=== PATIENT | male | born 2005 | race Caucasian/White ===

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

== ENCOUNTER 2024-06-22 08:46 | Emergency (ER) | payer OTHER, SELFPAY ==
--- NOTE | ~2024-06-22 | US_ITS ---
US scrotum doppler INDICATION: Left testicular pain after trauma TECHNIQUE: Testicular sonogram utilizing grayscale and color Doppler FINDINGS: The testes are normal in size and appearance. No focal lesions are seen. The right testes measures 3.5 x 3.1 x 1.8 cm centimeters, and the left testis measures 3.3 x 2.9 x 1.7 cm cm. There is normal vascular flow to both testes. The right and left epididymides appear normal. There is no varicocele or hydrocele. IMPRESSION: 1. NORMAL TESTICULAR ULTRASOUND. Reviewed, dictated and finalized at location B.
--- NOTE | ~2024-06-22 | CT_ITS ---
Non-contrast CT scan of the Abdomen and Pelvis Clinical indication: Left flank pain Technique: 2.5 mm axial scans were obtained through the abdomen and pelvis without intravenous or or al contrast. Dose reduction technique was used on this scan by utilizing automated exposure control a nd iterative reconstruction technique. The dose-length product (DLP) was 464.15 mGy-cm. Findings: Images through the lung bases reveal no abnormalities. There is no evidence of renal or ureteral calculi. The kidneys and the ureters are nondilated. The liver, spleen, pancreas, gallbladder, and adrenals appear normal. There is no aortic aneurysm. There is no evidence of bowel obstruction. Images through the pelvis were performed. There is no evidence of ascites or lymphadenopathy. Urinary bladder unremarkable. No pelvic mass seen. No ascites. Impression: No significant abnormality seen. Reviewed, dictated and finalized at [facility]. Impression: No significant abnormality seen.
[2024-06-22 08:46] VITALS: BP 137/93; PULSE 104; RESP 18; TEMP 36.3; O2SAT 100
--- NOTE | 2024-06-22 08:50 | PC.NURSE ---
Patient taken down to Ultrasound
--- NOTE | 2024-06-22 08:51 | ED.MALEGU ---
HPI - Male Genitourinary General Chief complaint: Urogenital-Male Stated complaint: testicular pain Time Seen by Provider: 06/22/24 08:50 Source: patient Mode of arrival: ambulatory History of Present Illness HPI Narrative: 19 years old white male came to the ED by private car complaining of left testicular pain. Started 1 hour prior to arrival. Patient reports that he got head but his dog at 8:00 p.m. last night. Did not have any symptom at that time. Patient denies any penile discharge, urinary symptoms, fever, chills, nausea, vomiting. Related Data Allergies Allergy/AdvReac Type Severity Reaction Status Date / Time pseudoephedrine Allergy Hives Ver[facility]/22/24 08:51 [facility] Review of Systems Review of Systems: All systems reviewed & are unremarkable except as noted in HPI and below PMFSH Past Medical History Medical History No significant medical problems Surgical History Surgical History No significant past surgical history Family History Family History Mother Diabetes mellitus Social History Social History Substance use type: does not use Additional living arrangements comments: lives with mother Gender identity (if verbalized by the patient): Female Sexual Orientation (if Verbalized by the Patient): Straight or Heterosexual Exam Narrative: General appearance: Well-developed, well-nourished Skin: Normal color Head: Normocephalic, nontraumatic Chest and respiratory: Airway patent, no respiratory distress, no accessory muscle use Heart: Regular rate/rhythm Abdomen: Soft, nontender, no organomegaly, quiet bowel sounds , scrotal exam showed no tenderness, no bruises, no rash Vascular: Normal peripheral pulses, normal capillary refill. Musculoskeletal: Normal range of motion, nontender back Neurologic: Alert and oriented ?3, Course Vital Signs Vital signs: Vital Signs Temperature 36.3 C L 06/22/24 08:46 Pulse Rate 104 H 06/22/24 08:46 Respiratory Rate 18 06/22/24 08:46 Blood Pressure 137/93 H 06/22/24 08:46 Pulse Oximetry 100 06/22/24 08:46 Oxygen Delivery Room Air 06/22/24 08:46 Temperature 36.3 C L 06/22/24 08:46 Pulse Rate 104 H 06/22/24 08:46 Respiratory Rate 18 06/22/24 08:46 Blood Pressure 137/93 H 06/22/24 08:46 Pulse Oximetry 100 06/22/24 08:46 Oxygen Delivery Room Air 06/22/24 08:46 MDM - Male Genitourinary Lab Data Labs: Lab Results 06/22/24 Range/Units 08:52 Urine Color [place] A (Yellow) Urine Appearance Sl cloudy A (Clear) Urine pH 6.5 (5.0-8.0) Ur Specific [place] 1.025 H (1.010-1.020) Urine Protein 1+ H (Negative) Urine Glucose (UA) Negative (Negative) Urine Ketones Negative (Negative) Ur Blood (Man) 3+ H (Negative) Urine Nitrate Negative (Negative) Urine Bilirubin Negative (Negative) Urine Urobilinogen 1.0 (0.2-1.0) mg/dL Ur Leukocyte Esterase Negative (Negative) Urine RBC 51-75 H (0-2) /hpf Urine WBC None seen (0-3) /hpf Urine Bacteria Rare (None) /hpf Urine Mucus Moderate H /lpf Imaging Data Radiologist's impression: Impressions Scrotum Ultrasound 06/22/24 09:23 IMPRESSION: 1. NORMAL TESTICULAR ULTRASOUND. Discharge Plan Discharge Clinical Impression: Hematuria, Left testicular pain Patient Disposition: Home, Self-Care Condition: Stable Instructions: Antibiotic Form, Hematuria (ED), Testicle Pain (ED) Add
--- NOTE | 2024-06-22 09:14 | PC.NURSE ---
Patient back in room from ultrasound.
[2024-06-22 09:38] LABS: Add Urine Microscopic? YES; Bilirubin Urine Negative (Negative); Blood Urine 3+ (Negative); Glucose Urine UA Negative (Negative); Ketones Urine Negative (Negative); Leukocyte Esterase Ur Negative (Negative); Nitrate Urine Negative (Negative); Protein Urine 1+ (Negative); Specific Grav Ur 1.025 (1.010-1.020); pH Urine 6.5 (5.0-8.0)
[2024-06-22 09:44] LABS: Appearance Urine Sl Cloudy (Clear); Color Urine Amber (Yellow); RBC Urine 51-75 /hpf (0-2); WBC Urine None seen /hpf (0-3)
[2024-06-22 09:45] LABS: Bacteria Urine Rare /hpf; Mucus Urine Moderate /lpf
--- NOTE | 2024-06-22 09:50 | PC.NURSE ---
Patient taken to CT
--- NOTE | 2024-06-22 09:58 | PC.NURSE ---
Patient back in room from CT
[2024-06-22 11:20] VITALS: BP 109/64; PULSE 81; RESP 18; TEMP 36.7; O2SAT 100
== END 2024-06-22 11:20 | disposition home or self-care (01) ==
PROVIDERS: Emergency Provider Emergency Medicine
DX: R31.9 Hematuria, unspecified (principal); N50.812 Left testicular pain
CPT/HCPCS: 74176; 76870; 81001; 93976; 99284

== ENCOUNTER 2025-07-05 13:54 | Outpatient (CLI) | payer OTHER, SELFPAY ==
--- OUTSIDE RECORDS SUMMARY | 2025-07-05 13:57 | XMS_ITS | Clinical Summary ---
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 Gender Identity Not on file Sexual Orientation Not on file Plan of Treatment Health Maintenance Due Date Last Done Comments Hepatitis B Vaccines (3 of 3 - 3-dose series) 03/11/2005 01/14/2005, 2004 Annual Physical 2007 Hepatitis C 2022 Meningococcal B Vaccine (2 of 2 - Trumenba SCDM 2-dose series) 04/13/2022 10/14/2021 DTaP, Tdap and Td Vaccines (4 - Tdap) 2023 2004, 2004, 2004 COVID-19 Vaccine ( season) 2025 09/10/2021, 01/13/2021, 12/23/2020 Influenza Adult (#1) 2025 10/14/2021, 06/13/2018, 06/17/2014, Additional history exists Pneumococcal Vaccine: Pediatrics (0 to 5 Years) and At-Risk Patients (6 to 49 Years) Aged Out 04/13/2005, 2004, 2004, Additional history exists No longer eligible based on patient's age to complete this topic HPV Vaccines Completed 03/11/2020, 04/04/2018 Meningococcal Vaccine Completed 10/14/2021, 021 Hepatitis A Vaccines Aged Out No long er eligible based on patient's age to complete this topic RSV Immunizations Under 20 Months Aged Out No longer eligible based on patient's age to complete this topic Insurance [employer] Care Teams Community Resource Consultant Relationship Specialty Start Date End Date Kirstin Dave MD [address] [place] [id number] PCP - General FAMILY PRACTICE 11/14/24
--- OUTSIDE RECORDS SUMMARY | 2025-07-05 13:57 | XMS_ITS | Patient Health Record ---
Author Organization [facility] As [facility] Address [address] [facility] [address] [place] [address] Support Name Relationship Address Phone APLADAN Emergency Contact Unknown [phone] CANDELARIO DE SOUZA Guarantor Unknown [phone] Reason For Referral No Information Medications Medication SIG (Take, Route, Frequency, Duration) Notes Start Date End Date Status Divalproex Sodium ER 500 MG Tablet Extended Release 24 Hour Oral 12/08/2022 Active hydrOXYzine HCl 25 MG Tablet Oral 12/08/2022 Active traZODone HCl 50 MG Tablet Oral 12/08/2022 Active Escitalopram Oxalate 20 MG Tablet Oral 12/08/2022 Active Social History Social History Additional Details Category Social Info Options Details Migrated Social History Migrated Social History Alcohol Intake: None 07/14/2022,Tobacco Years: Never smoker 07/14/2022 Plan Of Treatment No Information Insurance Providers Payer Name Payer Address Payer Phone Subscriber Number Group Number Insured Name Patient Relationship to Insured Coverage Start Date Coverage End Date [facility] [address] [place] [address] [id number] MEKA DE SOUZA Child - Insured has Financial Responsibility
[2025-07-05 14:22] LABS: Hematocrit 42.6 % (40.0-54.0); Hemoglobin 14.5 g/dL (14.0-18.0); Immature Granulocyte Percent A 0.3 % (0.0-0.0); Lymphocytes Absolute Auto 1.23 K/mm3 (1.10-4.50); Mean Corpuscular HGB Conc 34.0 g/dL (32-36); Mean Corpuscular Hemoglobin 29.2 pg (27.0-31.0); Mean Corpuscular Volume 85.9 fL (78.0-102.0); Nucleated Red Blood Cells Absolute Auto 0.00 K/mm3 (0.00-0.00); Nucleated Red Blood Cells Perc 0.0 % (0-0.0); Platelet Count Result 308 K/mm3 (150-420); Red Blood Count 4.96 M/mm3 (4.70-6.10); White Blood Count 9.9 K/mm3 (4.8-10.8)
[2025-07-05 14:34] LABS: Hemoglobin A1C 4.9 % (<5.7)
[2025-07-05 15:12] LABS: Alanine Aminotransferase 13 U/L (6-50); Albumin Level 4.8 g/dL (3.5-5.1); Alkaline Phosphatase 67 U/L (38-126); Anion Gap 9 mmol/L (4-12); Aspartate Amino Transferase 23 U/L (17-59); Bilirubin,Total 1.7 mg/dL (0.2-1.3); Blood Urea Nitrogen 16 mg/dL (9-20); CRP < 0.5 mg/dL (<1.0); Calcium 9.7 mg/dL (8.4-10.2); Carbon Dioxide 29 mmol/L (22-30); Chloride 105 mmol/L (98-107); Cholesterol 142 mg/dL (0-200); Estimated Glomerular Filt Rate > 60; Glucose 90 mg/dL (65-110); HDL Direct 54 mg/dL; Lipase 81 U/L (23-300); Osmolality Calculated 297 mOsm/kg (285-295); Potassium 4.0 mmol/L (3.4-5.0); Sodium 143 mmol/L (137-145); Total Protein 7.5 g/dL (6.3-8.2); Triglycerides 70 mg/dL (<150)
[2025-07-05 15:40] LABS: Thyroid Stimulating Hormone Reflex 0.555 uIU/mL (0.465-4.68)
== END 2025-07-05 13:55 | disposition home or self-care (01) ==
LOC: CHSLAB 13:55
PROVIDERS: PCP Nurse Practitioner Family; Visit Provider Nurse Practitioner Family
DX: Z00.00 Encounter for general adult medical examination without abnormal findings (principal); Z83.49 Family history of other endocrine, nutritional and metabolic diseases; R11.10 Vomiting, unspecified
CPT/HCPCS: 36415; 80053; 80061; 83013; 83036; 83690; 84443; 85025; 86140

== ENCOUNTER 2025-07-18 13:03 | Outpatient (CLI) | payer OTHER, BC, SELFPAY ==
--- NOTE | ~2025-07-18 | CT_ITS ---
PROCEDURE: [Procedure] INDICATION: R11.10 - Vomiting, unspecified COMPARISON(S): 2023 TECHNIQUE: Multiplanar images of the abdomen and pelvis were obtained with intravenous contrast solution.. Diagnostic sensitivity is limited due to lack of oral contrast. Dose lowering technique and dose optimization was utilized. FINDINGS: Inferior thorax: No significant abnormality is seen. Liver: Normal. Gallbladder: The gallbladder is present. There are no radiopaque gallstones. Pancreas: Within normal limits. Spleen: Normal in size and appearance. Adrenal glands: There are no masses seen. Kidneys: There is no hydronephrosis seen on either side. No urinary tract stones are seen. There are no suspicious masses seen. GI tract: There is marked gastric distention. The stomach is nearly entirely filled with fluid. There is no dilated small bowel or colon. The colon is essentially entirely filled with fecal material. It is not dilated. Major vessels: The major vessels are normal in caliber. Sex specific pelvic organs: No significant abnormality is seen. Bladder: It appears normal. Bones: Several minimal to mild compression deformities of vertebral bodies about the thoracolumbar junction. IMPRESSION: 1. Marked gastric distention. A cause for this is not identified. 2. The colon is essentially entirely filled with fecal material, but the small bowel and colon are not dilated. Reviewed, dictated and finalized at location A. [facility]
--- OUTSIDE RECORDS SUMMARY | 2025-07-18 13:49 | XMS_ITS | Clinical Summary ---
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
--- OUTSIDE RECORDS SUMMARY | 2025-07-18 13:49 | XMS_ITS | Patient Health Record ---
Author Organization [facility] As [facility] Address [address] [facility] [address] [place] [address] Support Name Relationship Address Phone APLADAN Emergency Contact Unknown CANDELARIO DE SOUZA Guarantor Unknown [phone] Reason For Referral No Information Medications Medication [...] Insured Coverage Start Date Coverage End Date [facility] [address] [place] [address] [id number] MEKA DE SOUZA Child - Insured has Financial Responsibility
== END 2025-07-18 13:04 | disposition home or self-care (01) ==
LOC: CHSIMG 13:06
PROVIDERS: PCP Nurse Practitioner Family; Visit Provider Nurse Practitioner Family
DX: R11.10 Vomiting, unspecified (principal); R10.11 Right upper quadrant pain; R11.0 Nausea; R63.4 Abnormal weight loss
CPT/HCPCS: 74177; Q9967